=== PATIENT | female | born 1945 | race Asian ===

== ENCOUNTER 2018-08-06 09:54 | Emergency (ER) | payer OTHER, MEDICAID ==
[~2018-08-06] VITALS: Ht 157.5 cm; Wt 61.2 kg
[2018-08-06 10:10] VITALS: BP 175/97
--- NOTE | 2018-08-06 10:12 | NUR ---
TO LOBBY A/W BED, AMBULATORY, ERMSharona NOTED
--- NOTE | 2018-08-06 10:59 | NUR ---
PATIENT AMBULATED TO BED 1 AT THIS TIME.
--- NOTE | 2018-08-06 11:00 | NUR ---
73Y/F BIB FAMILY WITH C/O HIGH BLOOD PRESSURE, PT STATES SHE TOOK HER HYPERTENSION DIOVAN 360 THS MORNING WITH NO RELIEF WITH CASTILLO AT THIS TIME, NO BLURRY VISION, PT IS AAOX4, EVEN AND UNLABORED BREATHING, BED DOWN, BEDTAIL UP X 1, ER MD AWARE AND NOTIFIED OF PT STATUS. PMH: HTN, HIGH CHOLESTEROL RX; DIOVAN 360
--- NOTE | 2018-08-06 11:08 | NUR ---
talk to dr. santoyo about pt bp being 212/[address] santoyo said no meds
--- NOTE | 2018-08-06 11:48 | NUR ---
LAB AT BEDSIDE
[2018-08-06] MEDS ORDERED: cloNIDine 0.1 MG TAB ONE (11:52)
[2018-08-06 11:57] LABS: BASOPHILS % (AUTO) 0.3 % (0.0-2.0); EOSINOPHILS # (AUTO) 0.1 K/uL (0-0.4); EOSINOPHILS % (AUTO) 1.3 % (0.0-4.0); HEMATOCRIT 38.5 % (36-48); HEMOGLOBIN 12.4 g/dL (12.0-16.0); LYMPHOCYTES # (AUTO) 1.5 K/uL (2.5-16.5); LYMPHOCYTES % (AUTO) 21.8 % (20.5-51.1); MEAN CORPUSCULAR HEMOGLOBIN 24 pg (27-31); MEAN CORPUSCULAR HGB CONC 32 g/dL (33-37); MEAN CORPUSCULAR VOLUME 74.6 fL (80-94); MONOCYTES # (AUTO) 0.4 K/uL (0.8-1.0); MONOCYTES % (AUTO) 5.3 % (1.7-9.3); NEUTROPHILS # (AUTO) 4.8 K/uL (1.8-7.7); NEUTROPHILS % (AUTO) 71.3 % (42.2-75.2); PLATELET COUNT (AUTO) 176 K/uL (140-450); RED BLOOD CELL COUNT(AUTO) 5.16 MIL/uL (4.20-5.40); RED CELL DISTRIBUTION WIDTH 14.4 % (11.6-13.7); WHITE BLOOD COUNT (AUTO) 6.8 K/uL (4.8-10.8)
--- NOTE | 2018-08-06 12:00 | NUR ---
RAD AT BEDSIDE
[2018-08-06 12:07] LABS: ALBUMIN 3.7 g/dL (3.4-5.0); AMYLASE 44 U/L (25-115); ANION GAP 16.1 (8-16); ASPARTATE AMINOTRANSFERASE 20 U/L (15-37); CARBON DIOXIDE 23.7 mmol/L (21-32); CHLORIDE 104 mmol/L (98-107); CREATININE 1.3 mg/dL (0.6-1.3); GLUCOSE 106 mg/dL (74-106); LIPASE 172 U/L (73-393); POTASSIUM 3.8 mmol/L (3.5-5.1); SODIUM SERUM 140 mmol/L (136-145); UREA NITROGEN, BLOOD 22 mg/dL (7-18)
[2018-08-06 12:10] LABS: PROTHROMBIN TIME 10.7 secs (10.8-13.4)
--- NOTE | 2018-08-06 12:15 | NUR ---
EKG BEING DONE ON PT
[2018-08-06] MEDS ORDERED: VALS320T2 PO (12:30)
[2018-08-06] MEDS ORDERED: AMLO5TAB PO (12:30)
[2018-08-06] MEDS ORDERED: MIRT15TA PO (12:30)
[2018-08-06] MEDS ORDERED: MECL-272 PO (12:30)
[2018-08-06] MEDS ORDERED: DONE10TA10 PO (12:30)
[2018-08-06] MEDS ORDERED: ASPI-1718 PO (12:30)
[2018-08-06 13:18] LABS: APPEARANCE,URINE CLOUDY (CLEAR); BILIRUBIN,URINE NEGATIVE (NEGATIVE); BLOOD, URINE NEGATIVE (NEGATIVE); COLOR,URINE YELLOW (YELLOW); LEUKOCYTE ESTERASE ,URINE NEGATIVE (NEGATIVE); NITRITE, URINE NEGATIVE (NEGATIVE); UGLUCOSE NEGATIVE (NEGATIVE)
[2018-08-06 13:34] LABS: RBC,URINE 0-5 (RARE) /HPF (0-5); WBC,URINE 0-5 (RARE) /HPF (0-5)
[2018-08-06 13:35] LABS: URINE AMORPHOUS URATE 4+ /HPF (None Seen)
[2018-08-06 13:36] LABS: HYALINE CASTS, URINE 0-10 /LPF (None Seen)
--- NOTE | 2018-08-06 14:51 | NUR ---
Patient appears to be resting comfortably in bed. Vital Signs within normal limits. Respirations even and unlabored.
[2018-08-06] MEDS ORDERED: cloNIDine 0.1 MG TAB PO ONE (15:30)
[2018-08-06 15:51] VITALS: BP 127/73
--- NOTE | 2018-08-06 15:51 | NUR ---
Patient discharged with v/s stable. Written and verbal after care instructions given and explained. Patient alert, oriented and verbalized understanding of instructions. Ambulatory with steady gait. All questions addressed prior to discharge. ID band removed. Patient advised to follow up with PMD. Rx of clonidine given. Patient educated on indication of medication including possible reaction and side effects. Opportunity to ask questions provided and answered.
== END 2018-08-06 15:51 | disposition home or self-care (01) ==
LOC: MED 09:54
DX: M54.9 Dorsalgia, unspecified (principal); R42 Dizziness and giddiness; R51 Headache; R53.1 Weakness; H53.8 Other visual disturbances; I10 Essential (primary) hypertension; Z79.82 Long term (current) use of aspirin; Z79.899 Other long term (current) drug therapy
CPT/HCPCS: 36415; 70450; 71045; 80053; 81001; 82150; 83690; 84484; 85025; 85610; 85730; 87086; 93005; 99284

== ENCOUNTER 2020-03-03 18:59 | Emergency (ER) | payer OTHER, MEDICAID ==
[~2020-03-03] VITALS: Ht 157.5 cm; Wt 59.0 kg
[~2020-03-03 18:59] MED LIST: AMLO5TAB PO; ASPI-1822 PO; DONE10TA10 PO; MECL-303 PO; MIRT15TA PO; VALS320T2 PO
[2020-03-03 19:23] VITALS: BP 230/110
--- NOTE | 2020-03-03 19:47 | NUR ---
PT C/O HIGH BLOOD PRESSSURE WITH CASTILLO AND DIZZINESS X 1 DAY. WAS SEEN EARLIER TODAY AT [facility] AND DISCHARGED. DAUGHTER TOOK HER BP AT HOME AND IT WAS ELEVATED AND SHE STILL WAS EXPERIENCING SAME SYMPTOMS SO SHE BROUGHT HER HERE. DENIES N/T, NO N/V, NO SOB. PT PLACED ON BESIDE MONITOR. BED IN LOWEST POSITION AND SIDERAIL UP X 1. NKA HX - HTN
[2020-03-03] MEDS ORDERED: MORPHINE SULFATE 4 MG/ML SYR IVP ONE (19:55)
[2020-03-03] MEDS ORDERED: ONDANSETRON 4 MG/2 ML VIAL IVP ONE ×2 (19:55→21:35)
[2020-03-03 20:37] LABS: BASOPHILS % (AUTO) 0.3 % (0.0-2.0); EOSINOPHILS # (AUTO) 0.1 K/uL (0-0.4); EOSINOPHILS % (AUTO) 0.8 % (0.0-4.0); HEMATOCRIT 38.8 % (36-48); HEMOGLOBIN 12.5 g/dL (12.0-16.0); LYMPHOCYTES # (AUTO) 1.4 K/uL (2.5-16.5); LYMPHOCYTES % (AUTO) 16.1 % (20.5-51.1); MEAN CORPUSCULAR HEMOGLOBIN 25 pg (27-31); MEAN CORPUSCULAR HGB CONC 32 g/dL (33-37); MEAN CORPUSCULAR VOLUME 76.4 fL (80-94); MONOCYTES # (AUTO) 0.5 K/uL (0.8-1.0); MONOCYTES % (AUTO) 5.4 % (1.7-9.3); NEUTROPHILS # (AUTO) 6.6 K/uL (1.8-7.7); NEUTROPHILS % (AUTO) 77.4 % (42.2-75.2); PLATELET COUNT (AUTO) 199 K/uL (140-450); RED BLOOD CELL COUNT(AUTO) 5.07 MIL/uL (4.20-5.40); RED CELL DISTRIBUTION WIDTH 14.7 % (11.6-13.7); WHITE BLOOD COUNT (AUTO) 8.6 K/uL (4.8-10.8)
[2020-03-03 20:54] LABS: ALBUMIN 3.9 g/dL (3.4-5.0); ASPARTATE AMINOTRANSFERASE 24 U/L (15-37); CARBON DIOXIDE 23.7 mmol/L (21-32); CHLORIDE 101 mmol/L (98-107); CREATININE 1.4 mg/dL (0.6-1.3); GLUCOSE 124 mg/dL (74-106); POTASSIUM 3.7 mmol/L (3.5-5.1); SODIUM SERUM 137 mmol/L (136-145); UREA NITROGEN, BLOOD 26 mg/dL (7-18)
--- NOTE | 2020-03-03 21:10 | NUR ---
PT RESTING, RESPIRATIONS REGULAR EVEN AND UNLABORED, CONTINUES TO C/O DIZZINESS AND HEADACHE. PT REMAINS ON BEDSIDE MONITOR
[2020-03-03] MEDS ORDERED: KETOROLAC 30 MG/ML VIAL IVP ONE (21:35)
[2020-03-03 21:36] LABS: CREATINE KINASE MB 2.2 ng/mL (0-3.6)
[2020-03-03] MEDS ORDERED: hydrALAZINE 20 MG/ML VIAL IVP STA (21:44)
[2020-03-03 22:27] LABS: APPEARANCE,URINE SL CLOUDY (CLEAR); BILIRUBIN,URINE NEGATIVE (NEGATIVE); BLOOD, URINE TRACE-I (NEGATIVE); COLOR,URINE YELLOW (YELLOW); LEUKOCYTE ESTERASE ,URINE TRACE (NEGATIVE); NITRITE, URINE NEGATIVE (NEGATIVE); UGLUCOSE NEGATIVE (NEGATIVE)
[2020-03-03 22:40] LABS: RBC,URINE 0-5 /HPF (0-5)
[2020-03-03 22:41] LABS: URINE AMORPHOUS URATE 3+ /HPF (None Seen); WBC,URINE 0-5 /HPF (0-5)
--- NOTE | 2020-03-03 23:00 | NUR ---
PT WILL BE TRANSFERRED TO [facility] FOR HIGHER LEVEL OF CARE
[2020-03-03] MEDS ORDERED: ASPIRIN 325 MG TAB PO ONE (23:15)
--- NOTE | 2020-03-03 23:26 | NUR ---
CALLED REPORT TO HAMILTON HUGGINS AT [facility]. PT WILL BE TRANSFERRED FOR HIGHER LEVEL OF CARE. [facility]. ETA ON TRANSPORT 20 MINUTES
[2020-03-03 23:55] VITALS: BP 177/78
--- NOTE | 2020-03-03 23:58 | NUR ---
Patient to be transferred to [facility]. Is being transferred due to HIGHER LEVEL OF CARE. Receiving facility has accepting physician and available space. ER physician has signed transfer form. Patient or responsible republican has agreed to transfer and signed form. Patient belongings inventoried and will be sent with patient. Copy of nursing notes, lab reports, EKG, Physicians Orders and X-rays to be sent with patient. Report called to JOSELUIS VILLASENOR at receiving facility. [facility] ambulance service has been called for transfer. [facility] HERE NOW
== END 2020-03-03 23:56 | disposition short-term general hospital (02) ==
LOC: MED 18:59
DX: I16.0 Hypertensive urgency (principal); R42 Dizziness and giddiness; R53.1 Weakness; Z98.890 Other specified postprocedural states; Z79.899 Other long term (current) drug therapy
CPT/HCPCS: 36415; 70450; 71045; 80053; 81001; 82550; 82553; 84484; 85025; 93005; 96374; 96375; 96376; 99292; J0360; J1885; J2270; J2405; Q0092; 99285; 99291